=== PATIENT | male | born 1985 | race Caucasian/White ===

== ENCOUNTER 2024-06-05 17:06 | Outpatient (CLI) | payer MEDICAID, SELFPAY | END 2024-06-05 17:07 | disposition home or self-care (01) | LOC: AMB 06-06 23:57 | PROVIDERS: Visit Provider Family Medicine | DX: R41.82 Altered mental status, unspecified (principal); R26.9 Unspecified abnormalities of gait and mobility; R29.810 Facial weakness | CPT/HCPCS: A0425; A0427 ==

== ENCOUNTER 2024-06-05 17:38 | Emergency (ER) | payer OTHER, SELFPAY ==
[2024-06-05] VITALS (47 sets, daily range): BP systolic 105–149; BP diastolic 70–95; PULSE 101–111; RESP 10–27; TEMP 36.8; O2SAT 91–100
--- NOTE | 2024-06-05 17:42 | ED.GENADULT ---
HPI - General Adult General Chief complaint: Neuro Symptoms/Altered Deficit Stated complaint: Stroke Time Seen by Provider: 06/05/24 17:39 History of Present Illness HPI narrative: 38-year-old man presenting via EMS to the emergency department with concern of stroke. Apparently was up about 11 hours prior to arrival with some discoordination and vomiting. Subsequently went back to bed is my understanding and spouse called later afternoon hearing him slurring his speech. Arrived home to find other indications of stroke and called EMS. I meet Jesu in the back lynch with EMS. Normal vitals blood sugar. Does appear little out of it almost postictal or obtunded. Is slurring speech subtly with some left-sided lower face droop and demonstrating a little pronator drift of the left arm on initial exam. He denies neck or back pain. Denies actually hitting his head. Goes directly to CT imaging. Returns to room for re-evaluation. Does have a headache. Clarifying time lines - was unwell around 7:00 a.m. with discoordination and some vomiting. Went to bed maybe until 9 got up stumbled to the bathroom. Tumbled into the tub at that point. Spoke to his sometime between 11 and noon probably where she heard him to be slurring his words. She arrived home from work around for 430 seeing motor deficits and called EMS. Related Data Previous Rx's ?Medication ?Instructions ?Recorded amoxicillin 875 mg-potassium 1 tab PO BID #28 tabs 10/04/23 clavulanate 125 mg tablet Allergies Allergy/AdvReac Type Severity Reaction Status Date / Time No Known Drug Allergies Allergy Verified 10/04/23 09:03 Review of Systems Status of ROS: Reports: unobtainable due to mental status Exam Narrative: Exam Narrative: Appears little obtunded. Slightly confused. Almost postictal appearing. Pupils are 3 mm and equal in appropriately reactive. Extraocular movements are full. Do not see any evidence of head injury. Neck is supple without lymphadenopathy. Neck nontender. Back nontender. No oropharyngeal injury. There is some slurring of speech. Loss of motor to the lower left half of his face. Slight weakness with of the left arm and hand/audiologist strength relative to the right. Slight discoordination with the left hand on point point. Heart in elevated rate in regular rhythm. Lungs are clear. Extremities are well perfused without edema. NIH stroke scale estimated 5-6. Const: Vital Signs, click to edit/add: Vital Signs - 24 hr 06/05/24 17:55 06/05/24 17:55 06/05/24 17:55 Temperature 98.3 F 98.3 F Pulse Rate Pulse Rate [Pulse Oximeter] 106 H 106 H Respiratory Rate 20 20 Blood Pressure Blood Pressure [Ri ght Upper Arm] 144/86 H 144/86 H Pulse Oximetry 96 95 95 Oxygen Delivery Me thod Room Air Room Air 06/05/24 18:10 06/05/24 18:33 06/05/24 18:44 Temperature Pulse Rate 103 H 102 H Pulse Rate [Pulse Oximeter] 105 H Respiratory Rate 16 12 16 Blood Pressure 124/78 149/95 H Blood Pressure [Ri ght Upper Arm] 129/89 Pulse Oximetry 95 96 96 Oxygen Delivery Vt thod Room Air 06/05/24 19:01 06/05/24 19:17 06/05/24 19:18 Temperature Pulse Rate 103 H 101 H 107 H Pulse Rate [Pulse Oximeter] Respiratory Rate 18 18 27 H Blood Pressure 131/86 125/87 Blood Pressure [Ri ght Upper Arm] Pulse Oximetry 99 98 98 Oxygen Delivery Vt thod 06/05/24 19:30 06/05/24 19:30 06/05/24 19:32 Temperature Pulse Rate 107 H 111 H Pulse Rate [Pulse Oximeter] Respiratory Rate 17 17 Blood Pressure 140/95 H Blood Pressure [Ri ght Upper Arm] Pulse Oximetry 92 91 Oxygen Delivery Vt thod Room Air 06/05/24 19:45 06/05/24 19:46 06/05/24 19:47 Temperature Pulse Rate Pulse Rate [Pulse Oximeter] Respiratory Rate 12 19 13 Blood Pressure 140/90 H Blood Pressure [Ri ght Upper Arm] Pulse Oximetry Oxygen Delivery Vt thod 06/05/24 20:00 06/05/24 20:02 06/05/24 20:03 Temperature Pulse Rate Pulse Rate [Pulse Oximeter] Respiratory Rate 13 10 L 17 Blood Pressure 105/70 Blood Pressure [Ri ght Upper Arm] Pulse Oximetry Oxygen Delivery Vt thod 06/05/24 20:15 06/05/24 20:17 06/05/24 20:30 Temperature Pulse Rate Pulse Rate [Pulse Oximeter] Respiratory Rate 13 16 11 L Blood Pressure 125/77 Blood Pressure [Ri ght Upper Arm] Pulse Oximetry Oxygen Delivery Me thod 06/05/24 20:31 06/05/24 20:32 06/05/24 20:45 Temperature Pulse Rate Pulse Rate [Pulse Oximeter] Respiratory Rate 17 20 19 Blood Pressure 122/71 Blood Pressure [Ri ght Upper Arm] Pulse Oximetry Oxygen Delivery Me thod 06/05/24 20:46 06/05/24 21:00 06/05/24 21:05 Temperature Pulse Rate 110 H Pulse Rate [Pulse Oximeter] Respiratory Rate 17 20 23 Blood Pressure 140/92 H Blood Pressure [Ri ght Upper Arm] Pulse Oximetry 100 Oxygen Delivery Me thod 06/05/24 21:06 06/05/24 21:15 06/05/24 21:17 Temperature Pulse Rate 109 H Pulse Rate [Pulse Oximeter] Respiratory Rate 19 24 20 Blood Pressure 148/93 H Blood Pressure [Ri ght Upper Arm] Pulse Oximetry 95 Oxygen Delivery Vt thod 06/05/24 21:30 06/05/24 21:31 06/05/24 21:45 Temperature Pulse Rate Pulse Rate [Pulse Oximeter] Respiratory Rate 18 14 15 Blood Pressure 142/85 H Blood Pressure [Ri ght Upper Arm] Pulse Oximetry Oxygen Delivery Vt thod 06/05/24 21:46 06/05/24 21:47 06/05/24 22:00 Temperature Pulse Rate Pulse Rate [Pulse Oximeter] Respiratory Rate 16 14 12 Blood Pressure 147/80 H Blood Pressure [Ri ght Upper Arm] Pulse Oximetry Oxygen Delivery Vt thod 06/05/24 22:05 Temperature Pulse Rate Pulse Rate [Pulse Oximeter] Respiratory Rate 12 Blood Pressure Blood Pressure [Ri ght Upper Arm] [facility]xim[facility] has reviewed patient's vital signs: yes Course Vital Signs Vital signs: Initial Vital Signs Temperature 98.3 F 06/05/24 17:55 Temperature Source Temporal Artery Scan 06/05/24 17:55 Pulse Rate 106 H 06/05/24 17:55 Respiratory Rate 20 06/05/24 17:55 Blood Pressure 144/86 H 06/05/24 17:55 Blood Pressure Mean 105 06/05/24 17:55 Blood Pressure Position Supine 06/05/24 17:55 Pulse Oximetry 96 06/05/24 17:55 Oxygen Delivery Method Room Air 06/05/24 17:55 Vital Signs Temperature 98.3 F 06/05/24 17:55 Pulse Rate 106 H 06/05/24 17:55 Respiratory Rate 20 06/05/24 17:55 Blood Pressure 144/86 H 06/05/24 17:55 Pulse Oximetry 96 06/05/24 17:55 Oxygen Delivery Method Room Air 06/05/24 17:55 Temperature 98.3 F 06/05/24 17:55 Pulse Rate 109 H 06/05/24 21:17 Respiratory Rate 12 06/05/24 22:05 Blood Pressure 147/80 H 06/05/24 21:46 Pulse Oximetry 95 06/05/24 21:17 Oxygen Delivery Method Room Air 06/05/24 19:30 Medications Administered Medications: Discontinued Medications Generic Name Dose Route Start Last Admin Trade Name Freq PRN Reason Stop Dose Admin Aspirin 325 mg 06/05/24 18:35 06/05/24 18:59 Aspirin Ec 325 Mg Tablet PO 06/05/24 18:36 Not Given DAILY ONE Aspirin 300 mg 06/05/24 18:35 06/05/24 18:58 Aspirin 300 Mg Supp PA 06/05/24 18:36 300 mg ONCE ONE Administration Sodium Chloride 500 mls @ 1,000 mls/hr 06/05/24 17:39 06/05/24 20:53 0.9 % Sodium Chloride 500 Ml IV 06/05/24 18:08 Infused .Q30M ONE Infusion Sodium Chloride 1,000 mls @ 1,000 mls/hr 06/05/24 18:37 06/05/24 20:04 0.9 % Sodium Chloride 1000 Ml IV 06/05/24 19:36 Infused .Q1H ONE Infusion Medical Decision Making MDM Narrative Medical decision making narrative: Have ordered IV hydration bolus. After return from CT am discussing with Stroke Neuro. Reviewing images. Appears to have occlusion of the right ICA of uncertain duration. Wonder if he may have experienced a seizure. Recommendations are for hydration, permissive hypertension and PA aspirin. Also anticipating transfer to neuro step-down as soon as possible. Discussion to be had with IR. No thrombolytics recommended. Bed that was available is no longer available. Are contemplating other options at [facility] at this point for bed location. I have just had a conversation with silver steward. Suspected to be out of the window for interventions and certainly thrombolytics. Weather will be likely be a challenge for transport. INDICATION: Left facial droop, slurred speech, balance issues, stroke code.. TECHNIQUE: CT head without contrast. COMPARISON: None. FINDINGS: CSF spaces: Within normal limits for age. Brain parenchyma and extra-axial spaces: There appears to be an enlarged sulcus in the right parietal region near the sylvian fissure, may be related to congenital abnormality. The templeton-white junction in the adjacent brain parenchyma is not well visualized. Otherwise, elsewhere the templeton-white differentiation is normal. No sign of mass, hemorrhage, or midline shift. No extra-axial fluid collection. Skull base and calvarium: The visualized paranasal sinuses and mastoid air cells demonstrate no acute or significant findings. The visualized orbits are grossly unremarkable. No skull fractures. IMPRESSION: No acute intracranial process identified. Enlarged sulcus adjacent to the sylvian fissure may represent a congenital abnormality. Correlate with history and prior imaging, if available. Otherwise consider further evaluation with MRI of the brain.. Findings discussed with Dr. Pike at 5:50 pm on 06/05/[address] Costa. Please note that all CT scans at this facility use dose modulation, iterative reconstruction, and/or weight-based dosing when appropriate to reduce radiation dose to as low as reasonably achievable. Dictated by Antonia Costa MD @ 06/05/2024 5:56:28 PM Study:?CT-Neck Angio Angio CODE STROKE - W/ 95CC [id number] 5:55:37 PM Ordering Physician:Boris Dodson Preliminary Report: Prelim: There is artifact from patient motion, significantly degrading image quality and limiting evaluation. CTA Head: 1. Right ICA occlusion, reconstitution in the supraclinoid segment via the [id number]. 2. Right MCA occlusion, M2 segment. CTA NECK: 1. Right ICA occlusion. 8:30 p.m.. Cognitively appears to be much more clear. Is still having some mild dysarthria and left facial drooping and left arm weakness. Stable vitals. Have discussed with hospitalist for acceptance to neuro floor. It is my understanding that IR does not feel there is any large enough vessel involvement to be benefited from by their intervention. Pending transport at change of shift Medical Records Medical records reviewed: Yes I reviewed the patient's medical records Lab Data Lab results reviewed: Yes I reviewed the patient's lab results Labs: Lab Results 06/05/24 Range/Units 18:02 WBC 10.77 (4.50-11.00) K/uL RBC 5.21 (4.30-5.90) m/uL Hgb 15.1 (13.5-17.5) gm/dL Hct 44.4 (37.0-53.0) % MCV 85 (80-100) fL MCH 29 (26-34) pg MCHC 34 (32-36) gm/dL RDW Coeff of [place] 12.3 (11.5-15.5) % Plt Count 189 (140-440) K/uL Neut % (Auto) 92.7 H (42.0-72.0) % Lymph % (Auto) 4.2 L (20-44) % [place] % (Auto) 2.6 (0.0-11.0) % Eos % (Auto) 0.1 (0.0-7.0) % Baso % (Auto) 0.2 (0.0-3.0) % Neut # (Auto) 10.00 H (1.7-7.0) K/uL Lymph # (Auto) 0.50 L (0.90-2.90) K/uL [place] # (Auto) 0.30 (0.00-0.90) K/UL Eos # (Auto) 0.01 (0.00-0.50) K/uL Baso # (Auto) 0.02 (0.00-0.30) K/uL Abs Immat Gran (auto) 0.02 (0.00-0.30) K/uL Imm/Tot Granulo (auto) 0.2 % INR 1.08 (0.91-1.10) APTT 31 (23-33) Seconds Sodium 137 (135-149) mmol/L Potassium 3.9 (3.6-5.1) mmol/L Chloride 103 (96-114) mmol/L Carbon Dioxide 18 L (20-32) mmol/L Anion Gap 16 H (7-15) mEq/L BUN 24 (5-24) mg/dL Creatinine 1.2 (0.5-1.5) mg/dL Estimated GFR 78 ml/min Glucose 114 (60-115) mg/dL Calcium 9.2 (8.4-10.6) mg/dL SARS-CoV-2 (PCR) Negative SARS-CoV-2 (Negative) Influenza Type A (PCR) Negative PCR FLU A (Negative) Influenza Type B (PCR) Negative PCR FLU B (Negative) RSV (PCR) Negative PCR RSV (Negative) ECG Data Attestation: I personally reviewed and interpreted this ECG as follows: (Sinus tachycardia 103 without ischemic changes. Low voltage.) Critical Care Time Critical Care Time Critical Care Time: Yes Attestation: The patient required my highest level preparedness to intervene emergently and I personally spent this critical care time directly and personally managing the patient. This critical care time included: Obtaining a history; Examining the patient; Pulse oximetry; Ordering and reviewing of studies; Arranging urgent treatment with development of a management plan; Evaluation of patients response to treatment; Frequent reassessment discussions with other providers. This critical care time was performed to assess and manage the high probability of imminent life-threatening deterioration that could result in multiorgan failure. It was exclusive of separate billable procedures and treating other patients and teaching time. Total Critical Care Time in Minutes: 60 Discharge Plan Discharge Clinical Impression: CVA (cerebrovascular accident) Patient Disposition: Raegan Schultz Condition: Stable Prescriptions: No Action amoxicillin-pot clavulanate 875-125 mg tablet 1 tab PO BID Qty: 28 0RF Follow Up/Referrals: Provider,Not a Local [Primary Care Provider] - Stand Alone Forms: [employer] Info Instructions
[2024-06-05 18:12] LABS: Basophils Absolute Auto 0.02 K/uL (0.00-0.30); Basophils Percent Auto 0.2 % (0.0-3.0); Eosinophils Absolute Auto 0.01 K/uL (0.00-0.50); Eosinophils Percent Auto 0.1 % (0.0-7.0); Hematocrit 44.4 % (37.0-53.0); Hemoglobin* 15.1 gm/dL (13.5-17.5); Immature Granulocytes Abs Auto 0.02 K/uL (0.00-0.30); Immature Granulocytes Pct Auto 0.2 %; Lymphocytes Percent Auto 4.2 % (20-44); Mean Corpuscular HGB Conc 34 gm/dL (32-36); Mean Corpuscular Hemoglobin 29 pg (26-34); Mean Corpuscular Volume 85 fL (80-100); Monocytes Percent Auto 2.6 % (0.0-11.0); Neutrophils Percent Auto 92.7 % (42.0-72.0); Platelet Count* 189 K/uL (140-440); RDW Coefficient of Variation % 12.3 % (11.5-15.5); Red Blood Count 5.21 m/uL (4.30-5.90); White Blood Count* 10.77 K/uL (4.50-11.00)
[2024-06-05 18:19] LABS: Slide Review Reflex No
[2024-06-05 18:25] LABS: INR 1.08 (0.91-1.10); Partial Thromboplastin Time* 31 Seconds (23-33); Prothrombin Time 14.7 Seconds
[2024-06-05 18:31] LABS: Chloride* 103 mmol/L (96-114); Potassium* 3.9 mmol/L (3.6-5.1); Sodium* 137 mmol/L (135-149)
[2024-06-05 18:34] LABS: Anion Gap 16 mEq/L (7-15); Blood Urea Nitrogen* 24 mg/dL (5-24); Carbon Dioxide* 18 mmol/L (20-32); Creatinine* 1.2 mg/dL (0.5-1.5); Estimated Glomerular Filt Rate 78 ml/min
[2024-06-05 18:35] LABS: Calcium* 9.2 mg/dL (8.4-10.6); Glucose* 114 mg/dL (60-115)
[2024-06-05] MEDS: 0.9 % SODIUM CHLORIDE 1000 ml 1,000 ML IV (18:44)
[2024-06-05] MEDS: ASPIRIN 300 MG SUPP PR (18:58)
[2024-06-05 19:28] LABS: PCR FLU A Negative PCR FLU A (Negative); PCR FLU B Negative PCR FLU B (Negative); PCR RSV Negative PCR RSV (Negative); SARS PCR* Negative SARS-CoV-2 (Negative)
[2024-06-05] MEDS: 0.9 % SODIUM CHLORIDE 500 ML 500 ML 1000 ML IV (20:10)
== END 2024-06-05 23:46 | disposition short-term general hospital (02) ==
PROVIDERS: Emergency Provider Family Medicine
DX: I63.9 Cerebral infarction, unspecified (principal)
CPT/HCPCS: 36415; 70450; 70496; 70498; 80048; 85025; 85610; 85730; 87631; 93005; 94761; 99284; 99291; A9270; J7030; Q9967

== ENCOUNTER 2024-06-05 23:32 | Outpatient (CLI) | payer MEDICAID, SELFPAY | END 2024-06-05 23:33 | disposition home or self-care (01) | LOC: AMB 06-07 00:27 | PROVIDERS: Visit Provider Family Medicine | DX: I63.9 Cerebral infarction, unspecified (principal) | CPT/HCPCS: A0425; A0427 ==